=== PATIENT | male | born 1990 | race Caucasian/White ===

== ENCOUNTER 2020-12-30 06:57 | Emergency (ER) | payer SELFPAY ==
[2020-12-30 08:09] LABS: Absolute Lymphocytes (CBC) 2.2 K/uL (0.7-4.9); Basophils % 0.2 % (0-1.3); Hematocrit 42.1 % (39.6-49.0); Lymphocytes % 36.6 % (15.3-44.8); MPV 9.3 fL (7.6-11.3)
[2020-12-30 08:40] LABS: BUN Blood Urea Nitrogen 21 mg/dL (7-18); Bicarbonate 28 mmol/L (21-32); Glucose Level 87 mg/dL (74-106); Potassium 3.8 mmol/L (3.5-5.1); Sodium Level 140 mmol/L (136-145)
--- NOTE | 2020-12-30 09:13 | RAD REPORT ---
EXAM DESCRIPTION: CT - Soft Tissue Neck W/Contr CLINICAL HISTORY: Low anterior neck pain Neck pain and swelling. COMPARISON: No comparisons TECHNIQUE All CT scans are performed using dose optimization technique as appropriate and may includ e automated exposure control or mA/KV adjustment according to patient size. FINDINGS: Nasopharyngeal tissues are normal in appearance. Fossa Rosenmller are normal. Several mildly prominent submandibular and jugular chain lymph nodes are present bilaterally. Thyroid gland is normal sized. Salivary glands are normal sized and symmetric. Prominent degenerative change at C6-7. No aggressive bony lesion. Upper lung bustos are clear. IMPRESSION: No acute abnormality is detected.
--- NOTE | 2020-12-30 09:48 | ER ---
Nurse's Notes [facility] Name: Saulo Grimaldo Age: 30 yrs Sex: Male : 1990 Arrival Date: 12/30/2020 Time: 06:58 Bed 14 Private MD: Diagnosis: Anterior Neck pain Presentation: 12/30 07:04 Chief complaint: Patient states: intermittent above clavicular area sharp pains x 2 sv months but since 0130 the pain has been constant. Denies SOB, n/v. Also feels his "heart fluttering.". Coronavirus screen: Client denies travel out of the [place] in the last 14 days. At this time, the client does not indicate any symptoms associated with coronavirus-19. Ebola Screen: No symptoms or risks identified at this time. Risk Assessment: Do you want to hurt yourself or someone else? Patient reports no desire to harm self or others. Onset of symptoms was October 2020. 07:04 Method Of Arrival: Ambulatory sv 07:04 Acuity: SUDHAKAR 3 sv Historical: - Allergies: 07:07 PENICILLINS; sv - PMHx: 07:07 Atrial flutter; C6 fx; sv - PSHx: 07:07 None; sv - Immunization history:: Flu vaccine is not up to date. - Social history:: Smoking status: Reported history of juuling and/or vaping. Screenin:10 Abuse screen: Denies threats or abuse. Denies injuries from another. Nutritional dm14 screening: No deficits noted. Tuberculosis screening: No symptoms or risk factors identified. Fall Risk None identified. Assessment: 07:10 General: Appears in no apparent distress. uncomfortable, Behavior is calm, cooperative, dm14 appropriate for age. Pain: Complains of pain in Pt states has pain in the anterior chest/ neck. At rest he describes it as a tenderness. Pain radiates to Pain radiates up to jaw Pain at worst was 6 out of 10 on a pain scale. Pain began On and off for two months, continuously since 0130 hours. Cardiovascular: Reports Pt states has a "flutter" occasionally since the age of 15. 09:00 Reassessment: Pt has been for CT scan and returned. No change in overall condition. dm14 Vital Signs: 07:04 Weight 83.91 kg; Height 6 ft. 0 in. (182.88 cm); Pain 0/10; sv 07:10 BP 142 / 105; Pulse 90; Resp 18; Temp 98.6; Pulse Ox 99% ; dm14 07:30 BP 120 / 79; Pulse 73; Resp 18; Pulse Ox 98% ; dm14 08:00 BP 117 / 75; Pulse 74; Resp 16; Pulse Ox 98% ; dm14 08:30 BP 111 / 73; Pulse 68; Resp 16; Pulse Ox 100% ; dm14 09:00 BP 119 / 75; Pulse 73; Resp 18; Pulse Ox 100% ; dm14 09:30 BP 116 / 78; Pulse 75; Resp 18; Pulse Ox 100% ; dm14 07:04 Body Mass Index 25.09 (83.91 kg, 182.88 cm) sv ED Course: 06:58 Patient arrived in ED. cl3 07:06 Triage completed. sv 07:07 Arm band placed on Patient placed in an exam room, on a stretcher. sv 07:10 Harish Garcia MD is Attending Physician. kdr 07:10 Reina Nguyen, OVIDIO is Primary Nurse. dm14 07:10 Patient has correct armband on for positive identification. Bed in low position. Call dm14 light in reach. Pulse ox on. NIBP on. 08:53 CT Soft Tissue Neck W/contr In Process Unspecified. EDMS 09:00 No provider procedures requiring assistance completed. Patient maintains SpO2 dm14 saturation greater than 95% on room air. 10:06 IV discontinued, intact, bleeding controlled, No redness/swelling at site. Pressure dm14 dressing applied. Administered Medications: No medications were administered Outcome: 09:47 Discharge ordered by . kdr 10:06 Discharged to home ambulatory. dm14 10:06 Condition: stable 10:06 Discharge instructions given to patient, Instructed on discharge instructions, follow up and referral plans. Demonstrated understanding of instructions, follow-up care. 10:07 Patient left the ED. sv Signatures: Dispatcher [employer] Tigist Peter, OVIDIO NOLAN Harish Garcia MD MD kdr Lewis, Charde cl3 Reina Nguyen RN RN dm14
--- NOTE | 2020-12-30 09:48 | EDPHYS ---
Physician Documentation [facility] Name: Saulo Grimaldo Age: 30 yrs Sex: Male : 1990 Arrival Date: 12/30/2020 Time: 06:58 Bed 14 Private MD: ED Physician Harish Garcia HPI: 12/30 07:39 This 30 yrs old Male presents to ER via Ambulatory with complaints of Chest kdr Tightness. 07:40 The patient or guardian complains of pain, that is chronic. The symptoms are located on kdr the face, right aspect of thyroid, left aspect of thyroid and suprasternal notch. Onset: The symptoms/episode began/occurred and became worse and became persistent This has been intermittent for about two months and then last night at about 2:00 AM it became worse and persistent. The patient does not appear to be in any acute distress and denies difficulty swallowing or breathing. Context: The problem was sustained at home, The neck injury/problem resulted from from unknown cause. Associated signs and symptoms: The patient has no apparent associated signs or symptoms. The pain does not radiate. Modifying factors: The symptoms are alleviated by nothing. the symptoms are aggravated by movement, Moving head side to side. Severity of symptoms: At their worst the symptoms were mild, just prior to arrival, moderate, just prior to arrival, in the emergency department the symptoms have improved, moderately. The patient has experienced similar episodes in the past, a few times. The patient has not recently seen a physician. Historical: - Allergies: 07:07 PENICILLINS; sv - PMHx: 07:07 Atrial flutter; C6 fx; sv - PSHx: 07:07 None; sv - Immunization history:: Flu vaccine is not up to date. - Social history:: Smoking status: Reported history of juuling and/or vaping. ROS: 07:40 Constitutional: Negative for fever, chills, and weight loss, Eyes: Negative for injury, kdr pain, redness, and discharge, ENT: Negative for injury, pain, and discharge, Cardiovascular: Negative for chest pain, palpitations, and edema, Respiratory: Negative for shortness of breath, cough, wheezing, and pleuritic chest pain, Abdomen/GI: Negative for abdominal pain, nausea, vomiting, diarrhea, and constipation, Back: Negative for injury and pain. 07:40 Neck: Positive for pain with movement, pain at rest, Negative for pain with movement. Exam: 07:40 Constitutional: This is a well developed, well nourished patient who is awake, alert, kdr and in no acute distress. Head/Face: Normocephalic, atraumatic. Eyes: Pupils equal round and reactive to light, extra-ocular motions intact. Lids and lashes normal. Conjunctiva and sclera are non-icteric and not injected. Cornea within normal limits. Periorbital areas with no swelling, redness, or edema. Chest/axilla: Normal chest wall appearance and motion. Nontender with no deformity. No lesions are appreciated. Cardiovascular: Regular rate and rhythm with a normal S1 and S2. No gallops, murmurs, or rubs. Normal PMI, no JVD. No pulse deficits. Respiratory: Lungs have equal breath sounds bilaterally, clear to auscultation and percussion. No rales, rhonchi or wheezes noted. No increased work of breathing, no retractions or nasal flaring. Abdomen/GI: Soft, non-tender, with normal bowel sounds. No distension or tympany. No guarding or rebound. No evidence of tenderness throughout. Back: No spinal tenderness. No costovertebral tenderness. Full range of motion. 07:40 Neck: External neck: is normal, C-spine: appears grossly normal, Thyroid: appears normal, Trachea: no acute changes, There is a clicking of the thyroid cartilage when moved laterally but that motion is not particularly painful or uncomfortable. ROM/movement: is normal, is supple, slight anterior neck pain when moving side to side, Lymph nodes: no appreciated lymphadenopathy. Vital Signs: 07:04 Weight 83.91 kg; Height 6 ft. 0 in. (182.88 cm); Pain 0/10; sv 07:10 BP 142 / 105; Pulse 90; Resp 18; Temp 98.6; Pulse Ox 99% ; dm14 07:30 BP 120 / 79; Pulse 73; Resp 18; Pulse Ox 98% ; dm14 08:00 BP 117 / 75; Pulse 74; Resp 16; Pulse Ox 98% ; dm14 08:30 BP 111 / 73; Pulse 68; Resp 16; Pulse Ox 100% ; dm14 09:00 BP 119 / 75; Pulse 73; Resp 18; Pulse Ox 100% ; dm14 09:30 BP 116 / 78; Pulse 75; Resp 18; Pulse Ox 100% ; dm14 07:04 Body Mass Index 25.09 (83.91 kg, 182.88 cm) sv MDM: 07:40 Data reviewed: vital signs, nurses notes, lab test result(s), radiologic studies. kdr Counseling: I had a detailed discussion with the patient and/or guardian regarding: the historical points, exam findings, and any diagnostic results supporting the discharge/admit diagnosis, lab results, radiology results, the need for outpatient follow up. 09:47 Patient medically screened. kdr 12/30 07:39 Order name: CBC with Diff; Complete Time: 09:45 kdr 12/30 07:39 Order name: Basic Metabolic Panel; Complete Time: :45 kdr 12/30 07:39 Order name: CT Soft Tissue Neck W/contr; Complete Time: 09:45 kdr 12/30 07:39 Order name: TSH; Complete Time: :45 kdr Administered Medications: No medications were administered Disposition: 12/30/20 09:47 Discharged to Home. Impression: Anterior Neck pain. - Condition is Stable. - Discharge Instructions: Nonspecific Chest Pain, [id number]. - Medication Reconciliation Form, Thank You Letter form. - Follow up: Private Physician; When: 2 - 3 days; Reason: If symptoms return, Further diagnostic work-up, Recheck today's complaints, Continuance of care, Re-evaluation by your physician. - Problem is new. - Symptoms have improved. Signatures: Dispatcher [employer] EDTigist Barrow RN RN sv Rittger, Kevin, MD MD kdr Corrections: (The following items were deleted from the chart) 10:07 09:47 12/30/2020 09:47 Discharged to Home. Impression: Anterior Neck pain. Condition is sv Stable. Forms are Medication Reconciliation Form, Thank You Letter, Antibiotic Education, Prescription Opioid Use. Follow up: Private Physician; When: 2 - 3 days; Reason: If symptoms return, Further diagnostic work-up, Recheck today's complaints, Continuance of care, Re-evaluation by your physician. Problem is new. Symptoms have improved. kdr
[2020-12-30 10:15] VITALS: TEMP 98.6
[2020-12-30 10:19] VITALS: O2SAT 100
[2020-12-30 10:22] VITALS: BP 116/78
== END 2020-12-30 10:07 | disposition home or self-care (01) ==
LOC: ER 06:57
DX: M54.2 Cervicalgia (principal); Z88.0 Allergy status to penicillin
CPT/HCPCS: 36415; 70491; 80048; 84443; 85025; 99284; Q9967